=== PATIENT | female | born 1950 | race Caucasian/White ===

== ENCOUNTER 2016-09-26 09:31 | Inpatient (IN) | payer OTHER ==
[~2016-09-26] VITALS: Ht 147.3 cm; Wt 59.5 kg
[~2016-09-26 09:31] MED LIST: ACIPHEX20 MG PO; ADULT LOW DOSE81 M1 PO; ASPIR-TRIN325 M1 PO; CIPROFLOXACIN250 MG PO; COMPAZINE10 MG PO; FLAGYL500 MG PO; FLORASTOR250 MG PO; GLYCOTROL CAPS1 EACH PO; HYDROCODON-ACE1 EA11 PO; HYDROCODON-ACE1 EAC7 PO; K-DUR20 MEQ PO; LEVAQUIN500 MG PO; LITE COAT ASPI325 M1 PO; METRONIDAZOLE500 MG PO; MICONAZOLE NITR30 GM TP; NICOTINE PATCH1 EACH TD; NITROSTAT,NITR0.4 M1 SL; OSTERA TABLET1 EACH PO; PANTOPRAZOLE SO40 MG PO; PLAVIX75 MG PO; POTASSIUM CHLO20 ME2 PO; PRILOSEC10 MG PO; ROXICODONE5 MG PO; SIMVASTATIN PO; VITAMIN B122500 MCG PO; VITAMIN D-3 401 EACH PO; ZOCOR20 MG PO
[2016-09-26 11:58] LABS: BASOPHIL COUNT 0.1 K/uL (0-0.1); EOSINOPHIL (%) 0.4 % (0-5); EOSINOPHIL COUNT 0.1 K/uL (0-0.3); HEMATOCRIT 37.2 % (36.0-46.0); IMMATURE GRANULOCYTE (%) 0.4 % (0.0-0.7); IMMATURE GRANULOCYTE COUNT 0.5 K/uL; LYMPHOCYTE COUNT 1.8 K/uL (1.0-2.8); MCH 29.9 PG (29.0-34.0); MCHC 32.8 G/DL (30.0-36.0); MCV 91.2 FL (83-99); MEAN PLAT.VOLUME 11.2 uM^3 (9.5-12.4); MONOCYTE (%) 4.8 % (3-12); MONOCYTE COUNT 0.7 K/uL (0-0.8); NEUTROPHIL (%) 81.5 % (45-76); NEUTROPHIL COUNT 11.6 K/uL (1.8-6.4); PLATELET COUNT 301 K/uL (156-360); RBC DIS.WIDTH-CV 13.8 % (11.8-14.6); RBC DIS.WIDTH-SD 45.1 % (39-53); RED BLOOD COUNT 4.08 M/uL (3.80-5.20); WHITE BLOOD COUNT 14.3 K/uL (4.1-10.2)
[2016-09-26 12:06] LABS: CHLORIDE 102 mEq/L (99-109); POTASSIUM 3.6 mEq/L (3.7-5.4); SODIUM 137 mEq/L (136-147)
[2016-09-26 12:09] LABS: GLUCOSE 107 mg/dL (70-99)
[2016-09-26 12:10] LABS: ANION GAP 12 MEQ/L (2-14); TOTAL BILIRUBIN 0.6 mg/dL (0.0-1.0)
[2016-09-26 12:12] LABS: ALKALINE PHOSPHATASE 100 IU/L (3-129); GFR ESTIMATE (CALCULATED) > 59 mL/min/
[2016-09-26 12:13] LABS: UREA NITROGEN (BUN) 9 mg/dL (9-23)
[2016-09-26] MEDS ORDERED: GABAPENTIN300 MG PO (15:26)
[2016-09-26] MEDS ORDERED: PERCOCET 7.51 TABLET PO (15:26)
[2016-09-26 18:13] LABS: INFLUENZA A VIRAL ANTIGEN NEGATIVE; INFLUENZA B VIRAL ANTIGEN NEGATIVE
[2016-09-26 22:25] VITALS: BP 98/54
[2016-09-27] VITALS (7 sets, daily range): BP systolic 80–106; BP diastolic 52–69
[2016-09-27 06:58] LABS: INTERNAL CONTROL VALID? YES
[2016-09-27 07:45] LABS: ANION GAP 13 MEQ/L (2-14); CHLORIDE 102 MEQ/L (99-109); GFR ESTIMATE (CALCULATED) > 59 mL/min/; GLUCOSE 111 mg/dL (70-99); POTASSIUM 3.7 MEQ/L (3.7-5.4); SAMPLE HEMOLYSIS CHECK 0; SAMPLE ICTERIC CHECK 0; SAMPLE LIPEMIA CHECK 0; SODIUM 136 MEQ/L (136-147); UREA NITROGEN (BUN) 12 mg/dL (9-23)
[2016-09-27 07:58] LABS: PROTHROMBIN TIME 10.6 (9.2-11.2); PTT 29.3 (25-32)
[2016-09-27 08:05] LABS: EOSINOPHIL (%) 0.1 % (0-5); HEMATOCRIT 30.3 % (36.0-46.0); IMMATURE GRANULOCYTE (%) 0.4 % (0.0-0.7); IMMATURE GRANULOCYTE COUNT 0.1 K/uL; LYMPHOCYTE COUNT 1.8 K/uL (1.0-2.8); MCH 30.5 PG (29.0-34.0); MCV 92.4 FL (83-99); MEAN PLAT.VOLUME 11.4 uM^3 (9.5-12.4); MONOCYTE (%) 5.2 % (3-12); MONOCYTE COUNT 0.7 K/uL (0-0.8); NEUTROPHIL (%) 81.5 % (45-76); NEUTROPHIL COUNT 11.4 K/uL (1.8-6.4); PLATELET COUNT 266 K/uL (156-360); RBC DIS.WIDTH-CV 14.1 % (11.8-14.6); RED BLOOD COUNT 3.28 M/uL (3.80-5.20)
[2016-09-27 16:21] LABS: POINT-OF-CARE METER ID UU14174225
[2016-09-28] VITALS: BP 88/60
[2016-09-28 04:00] VITALS: BP 94/61
[2016-09-28 06:18] LABS: BASOPHIL COUNT 0.1 K/uL (0-0.1); EOSINOPHIL (%) 0.9 % (0-5); EOSINOPHIL COUNT 0.1 K/uL (0-0.3); HEMATOCRIT 30.9 % (36.0-46.0); IMMATURE GRANULOCYTE (%) 0.3 % (0.0-0.7); LYMPHOCYTE COUNT 2.6 K/uL (1.0-2.8); MCH 30.1 PG (29.0-34.0); MCHC 31.7 G/DL (30.0-36.0); MCV 94.8 FL (83-99); MONOCYTE (%) 5.1 % (3-12); MONOCYTE COUNT 0.5 K/uL (0-0.8); NEUTROPHIL (%) 64.9 % (45-76); NEUTROPHIL COUNT 5.9 K/uL (1.8-6.4); PLATELET COUNT 262 K/uL (156-360); RBC DIS.WIDTH-CV 14.4 % (11.8-14.6); RED BLOOD COUNT 3.26 M/uL (3.80-5.20)
[2016-09-28 07:55] VITALS: BP 145/65
[2016-09-28 07:59] LABS: ANION GAP 11 MEQ/L (2-14); CHLORIDE 112 MEQ/L (99-109); GFR ESTIMATE (CALCULATED) > 59 mL/min/; POTASSIUM 3.7 MEQ/L (3.7-5.4); SAMPLE HEMOLYSIS CHECK 0; SAMPLE ICTERIC CHECK 0; SAMPLE LIPEMIA CHECK 0; SODIUM 141 MEQ/L (136-147); UREA NITROGEN (BUN) 11 mg/dL (9-23)
[2016-09-28 08:01] LABS: GLUCOSE 80 mg/dL (70-99)
[2016-09-28 11:06] VITALS: BP 135/65
[2016-09-28] MEDS ORDERED: DOXYCYCLINE HY100 M3 PO (13:42)
[2016-09-28] MEDS ORDERED: PERCOCET 7.51 TABLET PO (13:42)
[2016-09-28] MEDS ORDERED: PREDNISONE10 MG PO (13:42)
[2016-09-28] MEDS ORDERED: LEVOFLOXACIN500 MG PO (13:42)
[2016-09-28] MEDS ORDERED: BUPROPION HCL150 M2 PO (13:42)
[2016-10-04] MEDS ORDERED: DURAGESIC25 MCG TD (10:22)
== END 2016-09-28 15:00 | disposition home or self-care (01) | DRG 871 ==
LOC: EME 09:31 → EDOF 15:31 → 5SOUTH 21:44
PROVIDERS: Emergency Medicine; Internal Medicine
PROC: 0FB23ZX Excision of Left Lobe Liver, Percutaneous Approach, Diagnostic (ICD-10-PCS; principal; 2016-09-27)
DX: A41.9 Sepsis, unspecified organism (principal); J44.0 Chronic obstructive pulmonary disease with (acute) lower respiratory infection; J18.9 Pneumonia, unspecified organism; J96.00 Acute respiratory failure, unspecified whether with hypoxia or hypercapnia; J44.1 Chronic obstructive pulmonary disease with (acute) exacerbation; R04.2 Hemoptysis; C78.7 Secondary malignant neoplasm of liver and intrahepatic bile duct; C78.02 Secondary malignant neoplasm of left lung; C77.1 Secondary and unspecified malignant neoplasm of intrathoracic lymph nodes; I25.10 Atherosclerotic heart disease of native coronary artery without angina pectoris; E78.5 Hyperlipidemia, unspecified; F17.200 Nicotine dependence, unspecified, uncomplicated; F32.9 Major depressive disorder, single episode, unspecified; F41.9 Anxiety disorder, unspecified; G89.29 Other chronic pain; Z88.1 Allergy status to other antibiotic agents; Z95.5 Presence of coronary angioplasty implant and graft; Z85.89 Personal history of malignant neoplasm of other organs and systems
CPT/HCPCS: 71020; 71260; 74177; 77012; 80048; 80053; 82948; 83605; 85025; 85610; 85730; 86304; 87040; 87070; 87205; 87449; 87502; 88307; 88341 TC; 88342 TC; 93005; 94640; 94640 76; 99202; 99281; 99285; C9113; J0456; J1170; J1200; J2930; J3010; J3370; J7030; J7050; J7512; S0073